=== PATIENT | male | born 1975 | race Caucasian/White ===

== ENCOUNTER → 2021-06-16 10:04 | Outpatient (BNVA) | payer OTHER, SELFPAY | PROVIDERS: Visit Provider Surgery | DX: D21.9 Benign neoplasm of connective and other soft tissue, unspecified (principal) | CPT/HCPCS: 99202 ==

== ENCOUNTER 2021-07-18 08:52 | Outpatient (REF) | payer OTHER, SELFPAY | END 2021-07-18 08:53 | disposition home or self-care (01) | LOC: HO.LAB 08:52 | PROVIDERS: Visit Provider Surgery | DX: D21.9 Benign neoplasm of connective and other soft tissue, unspecified (principal) | CPT/HCPCS: 11401; 88304 ==

== ENCOUNTER 2023-04-14 04:57 | Emergency (ER) | payer OTHER, SELFPAY ==
[2023-04-14] VITALS (7 sets, daily range): BP systolic 116–148; BP diastolic 62–102; PULSE 81–122; RESP 17–21; TEMP 36.6–37; O2SAT 76–99; BMI 27.1
--- NOTE | ~2023-04-14 | XR_ITS ---
EXAMINATION: XR CHEST CLINICAL INFORMATION: Hypoxia COMPARISON: None available. TECHNIQUE: Frontal view of the chest was obtained. FINDINGS: Lung volumes are symmetric. No focal consolidation is seen. No evidence of pneumothorax, significant pleural effusion, or overt pulmonary edema. The cardiomediastinal contour is unremarkable. No acute osseous findings are seen. XR/XR chest 1V IMPRESSION: No acute cardiopulmonary findings.
--- NOTE | 2023-04-14 05:14 | MHC.EDTECH ---
BELONGINGS TO [facility] WITH [employer]KE [employer] @ THIS TIME
--- NOTE | 2023-04-14 05:23 | ED_ITS ---
HPI - Overdose General Chief Complaint: Overdose Stated Complaint: OD,NARCAN BY BYSTANDERS,ADMITS TO COCAINE PER EMS Time Seen by Provider: 04/14/23 05:01 Source: patient Mode of arrival: EMS Limitations: no limitations History of Present Illness HPI Narrative: Patient with history of cocaine abuse snorted cocaine from his friend unsure if it was laced with anything not became unresponsive received Narcan by bystanders denies any SI or HI Related Data Home Medications Medication Instructions Recorded Confirmed aripiprazole 20 mg tablet 20 mg PO DAILY 06/16/21 06/16/21 atorvastatin 40 mg tablet 40 mg PO DAILY 06/16/21 06/16/21 bupropion HCl 200 mg tablet,12 hr 200 mg PO DAILY 06/16/21 06/16/21 sustained-release lorazepam 0.5 mg tablet 0.5 mg PO DAILY PRN 06/16/21 06/16/21 trazodone 100 mg tablet 100 mg PO BEDTIME PRN 06/16/21 06/16/21 Allergies Allergy/AdvReac Type Severity Reaction Status Date / Time No Known Allergies Allergy Verified 04/14/23 05:10 Review of Systems Review of Systems: Yes all other systems are reviewed and are negative [facility] Past Medical History Medical History Fibroma Hyperlipidemia Anxiety and depression Surgical History History of surgical removal of skin lesion No pertinent past surgical history Social History Social History Alcohol intake: current Smoked in Last 30 Days: No Use of substances other than those prescribed or required for medical reasons: Yes Substance Use Type: Crack/Cocaine Substance Use Frequency: Daily Last Used Substance: Just Prior to Admission Physical Exam Vital Signs: Vital Signs: Last Vital Signs Temp 98.6 F 04/14/23 05:28 Pulse 91 04/14/23 06:45 Resp 18 04/14/23 06:45 BP 116/62 04/14/23 05:28 Pulse Ox 91 L 04/14/23 06:12 O2 Del Method Nasal Cannula 04/14/23 06:12 O2 Flow Rate 3 04/14/23 06:12 BMI result Body Mass Index 27.1 Appearance: Alert. Oriented X3. No acute distress. Eyes: PERRLA, No Nystagmus ENT: Pharynx normal. Oral Mucosa moist Neck: Normal inspection. Neck supple. CVS: Normal heart rate and rhythm. Pulses normal. Respiratory: No respiratory distress. Equal air entry bilateral, no wheezing/rales/rhonchi Abdomen: Soft and nontender. Bowel sounds are present, no mass palpable, no CVA tenderness Skin: Skin warm and dry. Normal skin color. Normal skin turgor. Extremities: No lower extremity edema. No calf tenderness Neuro: Oriented X 3. No motor deficit. No sensory deficit.No cerebellar signs , cranial nerves II-XII intact Medications Administered Discontinued Medications Generic Name Dose Route Start Last Admin Trade Name Freq PRN Reason Stop Dose Admin Albuterol/Ipratropium 3 ml 04/14/23 06:30 04/14/23 06:44 Albuterol/Iprat 2.5/0.5mg 3 Ml Ampul.Neb INHALE 04/14/23 06:31 3 ml ONCE ONE Administration Medical Decision Making Medical Decision Making [facility] Narrative: Patient polysubstance abuse likely cocaine with opiates saturating 100% on room air patient unable to give a urine sample denied any SI or HI patient desaturating to 80% at room air while asleep and wakes up increased to 96% patient does have history of sleep apnea not using any CPAP will get chest x-ray and dispo accordingly Differential Diagnosis Differential Diagnoses: The differential diagnosis associated with the presentation includes Overdose/sleep apnea/pneumonia/CHF/pneumothorax Admission/Observation Consideration of admission/observation: Escalation of care including admission/o bservation considered Independent Interpretation I performed an independent interpretation of an: EKG Interpretation: Normal sinus rhythm heart rate 84 beats per minute normal interval normal axis no acute ST T wave changes no acute ischemia Discharge Plan Discharge Clinical Impression: Cocaine intoxication, Accidental opiate poisoning, Obstructive sleep apnea hypopnea, moderate Patient Disposition: Still a Patient Instructions: Sleep Apnea (DC), Cocaine Abuse (ED) Additional Instructions: Stop using cocaine and other drugs and follow with detox Prescriptions: No Action aripiprazole 20 mg tablet 20 mg PO DAILY atorvastatin 40 mg tablet 40 mg PO DAILY bupropion HCl 200 mg tablet sustained-release 12 hr 200 mg PO DAILY lorazepam 0.5 mg tablet 0.5 mg PO DAILY PRN trazodone 100 mg tablet 100 mg PO BEDTIME PRN
--- NOTE | 2023-04-14 05:30 | PC.NURSE ---
pt found to be 76% room air when sleeping, placed on 2L O2 via nasal cannula. denies sleep apnea or respiratory history.
--- NOTE | 2023-04-14 06:19 | PC.NURSE ---
pt bumped up to 3L NC as he continues to drop to 80s% on 2L when asleep. chest xray ordered and being done
[2023-04-14] MEDS: Albuterol/Iprat 2.5/0.5MG 3 ML AMPUL.NEB INHALE (06:44)
--- NOTE | 2023-04-14 07:15 | ECG_ITS ---
Test Reason : HYPOXIA Blood Pressure : / mmHG Vent. Rate : 084 BPM Atrial Rate : 084 BPM P-R Int : 174 ms QRS Dur : 094 ms QT Int : 388 ms P-R-T Axes : 036 006 027 degrees QTc Int : 458 ms Normal sinus rhythm Normal ECG No previous ECGs available Referred By: Truman Mehta Electronically Signed By:KALEB FAROOQ
[2023-04-14 07:55] LABS: MANUAL DIFF FLAG NO
[2023-04-14 07:57] LABS: Basophils Percent Auto 0.3 % (0-2); Eosinophils Percent Auto 0.2 % (0-4); Hematocrit 39.8 % (42.0-52.0); Hemoglobin 13.3 g/dl (14.0-18.0); Imm Gran Abs Auto 0.01 X10*3/uL (0.00-0.03); Imm Gran Pct Auto 0.2 % (0.0-0.4); Lymphocytes Absolute Auto 0.9 X10*3/uL (1.2-4.9); Lymphocytes Percent Auto 13.4 % (20-40); Mean Corpuscular HGB Conc 33.4 g/dl (31.0-36.0); Mean Corpuscular Hemoglobin 26.9 pg (27.0-33.0); Mean Corpuscular Volume 80.6 fL (80.0-98.0); Mean Platelet Volume 9.4 fL (9.4-12.4); Monocytes Absolute Auto 0.4 X10*3/uL (0.1-1.2); Monocytes Percent Auto 5.3 % (2-11); Neutrophils Absolute Auto 5.4 x10*3/uL (2.0-8.3); Neutrophils Percent Auto 80.6 % (45-73); Platelet Count 191 X10*3/uL (160-400); Red Blood Count 4.94 X10*6/uL (4.60-5.80); Red Cell Distribution Width 12.8 % (11.0-16.0); White Blood Count 6.6 X10*3/uL (4.8-10.8)
[2023-04-14 07:59] LABS: VBG Base Excess -1.7 mmol/L; VBG HCO3 25 mmol/L (22-26); VBG pCO2 50 mmHg; VBG pO2 176 mmHg
[2023-04-14 08:00] LABS: Venous Blood Gas Refer to POC result
[2023-04-14 08:10] LABS: Alanine Aminotransferase 30 U/L (0-40); Albumin Level 4.2 g/dL (3.5-5.0); Alkaline Phosphatase 89 U/L (39-117); Anion Gap 14 (12-20); Aspartate Amino Transferase 22 U/L (5-37); Bilirubin Total 0.3 mg/dL (0.0-1.0); Blood Urea Nitrogen 10 mg/dL (9-16); Carbon Dioxide 25 mmol/L (22-29); Chloride 104 mmol/L (96-108); Creatinine Clr Calc Pharmacy 90.3; Estimated Glomerular Filt Rate > 60; Glucose Random 137 mg/dL (60-115); Potassium 4.4 mmol/L (3.3-5.1); Sodium 139 mmol/L (135-145); Total Protein 7.2 g/dL (6.5-8.0)
[2023-04-14 08:16] LABS: Troponin-I High Sensitivity 2.7 ng/L (<3.5-35.0)
[2023-04-14 08:26] LABS: COVID-19 Test Negative (Negative); IDNOW Serial# 08D9AD1C
[2023-04-14 12:01] LABS: Venous Blood Gas Refer to POC result
[2023-04-14 12:02] LABS: VBG Base Excess 0.9 mmol/L; VBG HCO3 25 mmol/L (22-26); VBG pCO2 39 mmHg; VBG pH 7.41 (7.32-7.43); VBG pO2 176 mmHg
--- NOTE | 2023-04-14 12:36 | HO.SUDE ---
Met with pt in ED12 after pt brought to ED after accidental overdose after using cocaine, INH, and given Narcan by bystanders. Pt denied SI/HI. Pt sitting in bed, awake, alert, easily engages in conversation. Pt reports he recently discharged from the [facility] in [place] after having been in a program there x 3 months. Pt reports prior to [facility] he had been using cocaine, IV, approx $60 daily. Denies hx opioid use. Pt reports he had not used substances prior to this incident since discharge. Denies hx overdoses. Pt reports he was with a woman and they used cocaine, INH, which resulted in overdose. Pt did not complete UDS. It is surmised that fentanyl was present in the cocaine which resulted in overdose. Discussed this with pt and educated on risks involved with cocaine use, especially from an unknown source. Discussed harm reduction, provided pt with fentanyl test strips. Pt reports his sister is supportive of his recovery and he also attends [facility]. Pt provided with written recovery resources as well as t/w contact information if needed. Pt denies questions or concerns for t/w. Would like to discharge. Discussed with provider.
[2023-04-14] MEDS: Naloxone HCl Nasal TAKE HOME 4 MG SPRAY 8 MG NOSTRILALT (12:55)
== END 2023-04-14 13:13 | disposition home or self-care (01) ==
PROVIDERS: Emergency Medicine Emergency Medical Services; Emergency Provider Internal Medicine
DX: F14.129 Cocaine abuse with intoxication, unspecified (principal); T40.604A Poisoning by unspecified narcotics, undetermined, initial encounter; Y92.9 Unspecified place or not applicable; G47.33 Obstructive sleep apnea (adult) (pediatric); R40.4 Transient alteration of awareness; Z11.52 Encounter for screening for COVID-19
CPT/HCPCS: 36415; 71045; 80053; 82803; 84484; 85025; 87635; 93005; 94640; 99285

== ENCOUNTER → 2023-04-14 07:15 | Outpatient (BNV) | payer OTHER, SELFPAY | PROVIDERS: Emergency Provider Internal Medicine; Visit Provider Internal Medicine | DX: R09.02 Hypoxemia (principal) | CPT/HCPCS: 93010 ==